=== PATIENT | female | born 2000 ===

== ENCOUNTER 2021-09-09 19:45 | Inpatient (IN) | payer MEDICAID, OTHER, SELFPAY ==
[~2021-09-09 19:45] MED LIST: Bupivacaine 0.25% HCL 30 ML VIAL ONE
[2021-09-09] MEDS ORDERED: Ibuprofen 800 MG TAB PO PRN (23:26)
[2021-09-09] MEDS ORDERED: Carboprost 250 MCG/ML AMP IM PRN (23:26)
[2021-09-09] MEDS ORDERED: hydrALAZINE 20 MG/ML VIAL SLOW IVP PRN (23:26)
[2021-09-09] MEDS ORDERED: Methylergonovine 0.2 MG/ML VIAL IM PRN (23:26)
[2021-09-09] MEDS ORDERED: Misoprostol 200 MCG TAB PR PRN (23:26)
[2021-09-09] MEDS ORDERED: Diphenoxylate HCl/Atropine Tablet PO PRN (23:26)
[2021-09-09] MEDS ORDERED: Butorphanol Tartrate 1 MG/ML VIAL SLOW IVP PRN (23:26)
[2021-09-09] MEDS ORDERED: Ondansetron PF 4 MG/2 ML Vial IVP PRN (23:26)
[2021-09-09] MEDS ORDERED: Lidocaine 1% (PF) 30 ML VIAL SC PRN (23:26)
[2021-09-09] MEDS ORDERED: Acetaminophen 500 MG TAB PO PRN (23:26)
[2021-09-09] MEDS ORDERED: Promethazine HCl 25 MG/ML VIAL IM PRN (23:26)
[2021-09-09] MEDS ORDERED: HYDROcodone/Acetaminophen 5/325 mg Tablet PO PRN (23:26)
[2021-09-09 23:43] VITALS: BMI 30.2
[2021-09-10] MEDS: Misoprostol 100 MCG TAB PO SCH ×2 (00:40→05:18)
[2021-09-10 00:45] LABS: Hemoglobin 10.5 g/dL (12.0-15.5); Mean Corpuscular HGB CONC 32.9 g/dL (32.0-36.0); Mean Corpuscular Hemoglobin 27.9 pg (27.0-33.0); Mean Corpuscular Volume 84.8 fl (81.6-98.3); Mean Platelet Volume 10.8 fl (7.4-10.4); Platelet Count 272 10x3/uL (150-450); RBC Distribution Width 13.2 % (11.5-14.5); Red Blood Cell (RBC) Count 3.76 10x6/uL (3.90-5.03); White Blood Cell (WBC) Count 10.8 10x3/uL (3.5-10.5)
[2021-09-10 01:18] LABS: Hep B Surf Ag Non-Reactive S/CO (NonReactive)
[2021-09-10 01:19] LABS: Syphilis Antibody Nonreactive (Nonreactive); Syphilis Antibody Index 0.07 S/CO (<1.00 Non-Reactive)
[2021-09-10 01:23] LABS: HBSAg Index 0.21 S/CO (0-0.99)
[2021-09-10] MEDS: NS w/ Oxytocin 30 units 500 ML IV SCH ×2 (05:18→11:11)
[2021-09-10] MEDS: Lactated Ringer's 1,000 ML IV SCH ×2 (05:18→14:01)
[2021-09-10] MEDS ORDERED: Fentanyl 2 mcg/Bup 0.1% Cadd 100 ML ONE (08:29)
[2021-09-10] MEDS ORDERED: ePHEDrine Sulfate 50 MG/10 ML VIAL SLOW IVP PRN (08:54)
[2021-09-10] MEDS ORDERED: Promethazine HCl 25 MG/ML VIAL IM PRN ×2 (08:54→13:12)
[2021-09-10] MEDS ORDERED: Acetaminophen 325 MG TAB PO PRN (08:54)
[2021-09-10] MEDS ORDERED: Ondansetron PF 4 MG/2 ML Vial IVP PRN ×2 (08:54→13:12)
[2021-09-10] MEDS ORDERED: Moisturizing Cream (Eucerin) 113 GM JAR TOP PRN (08:54)
[2021-09-10] MEDS ORDERED: Lactated Ringer's 500 ML IV PRN (08:54)
[2021-09-10] MEDS ORDERED: diphenhydrAMINE 50 MG/ML VIAL IVP PRN (08:54)
[2021-09-10] MEDS ORDERED: Naloxone HCl 0.4 mg/ml Vial IVP PRN ×2 (08:54)
[2021-09-10] MEDS ORDERED: Communication Order-Pharmacy FS SCH (09:00)
[2021-09-10] MEDS ORDERED: Fentanyl 2 mcg/Bupivacaine 0.1% Cassette 100 ML EPIDURAL SCH (09:00)
[2021-09-10] MEDS ORDERED: diphenhydrAMINE 25 MG CAP PO PRN (13:12)
[2021-09-10] MEDS ORDERED: Benzocaine-Menthol 82.5 ML CAN TOP PRN (13:12)
[2021-09-10] MEDS ORDERED: HYDROcodone/Acetaminophen 5/325 mg Tablet PO PRN (13:12)
[2021-09-10] MEDS ORDERED: Bisacodyl 10 MG SUPP PR PRN (13:12)
[2021-09-10] MEDS ORDERED: NS w/ Oxytocin 30 units 500 ML IV SCH (13:12)
[2021-09-10] MEDS ORDERED: hydrALAZINE 20 MG/ML VIAL SLOW IVP PRN (13:12)
[2021-09-10] MEDS ORDERED: Milk Of Magnesia 30 ML UDCUP PO PRN (13:12)
[2021-09-10] MEDS ORDERED: Boostrix 0.5 ML (Tdap) VIAL IM ONE (13:12)
[2021-09-10] MEDS ORDERED: Lanolin Ointment 7 GM TUBE TOP PRN (13:12)
[2021-09-10] MEDS: Ibuprofen 800 MG TAB PO SCH ×2 (14:19→21:20)
[2021-09-10] MEDS: Ferrous Sulfate 325 MG TAB PO SCH (16:43)
[2021-09-10] MEDS: Docusate 100 MG CAP PO SCH (21:20)
[2021-09-11] MEDS: Ibuprofen 800 MG TAB PO SCH ×2 (05:17→14:27)
[2021-09-11] MEDS: Ferrous Sulfate 325 MG TAB PO SCH (07:19)
[2021-09-11 07:59] VITALS: BP 101/61; TEMP 98.2
[2021-09-11] MEDS: Docusate 100 MG CAP PO SCH (08:58)
[2021-09-11] MEDS ORDERED: Prenatal Vitamin 1 TAB PO SCH (09:00)
== END 2021-09-11 15:45 | disposition home or self-care (01) | DRG 807 ==
LOC: CSHLD 23:18 → CSHPP 09-10 13:40
PROVIDERS: ADMIT Family Medicine; ATTEND Family Medicine
PROC: 10E0XZZ Delivery of Products of Conception, External Approach (ICD-10-PCS; principal; 2021-09-10)
PROC: 10907ZC Drainage of Amniotic Fluid, Therapeutic from Products of Conception, Via Natural or Artificial Opening (ICD-10-PCS; 2021-09-10)
PROC: 3E0P7VZ Introduction of Hormone into Female Reproductive, Via Natural or Artificial Opening (ICD-10-PCS; 2021-09-10)
PROC: 0UQMXZZ Repair Vulva, External Approach (ICD-10-PCS; 2021-09-10)
DX: O70.0 First degree perineal laceration during delivery (principal); Z37.0 Single live birth; Z3A.40 40 weeks gestation of pregnancy
CPT/HCPCS: 36415; 51701; 51702; 85027; 86780; 86850; 86900; 86901; 87340; J2210; J2590; J7120; S0020